=== PATIENT | female | born 1950 | race Caucasian/White ===

== ENCOUNTER 2024-02-21 07:10 | Day surgery (SDC) | payer MEDICARE, OTHER ==
[~2024-02-21] VITALS: Ht 175.3 cm; Wt 88.6 kg
[~2024-02-21 07:10] MED LIST: DYANAVEL PO; IBLOOD GLUCOSE TEST STRIP 1 EA TEST VI PRN; K2 PLUS D3 TAB1 EACH PO; LACTATED RINGER'S 1,000 ML IV SCH; LEVOTHYROXINE50 MC1 PO; LIDOCAINE HCL 1% 5 ML SDV INJ ONE; MIDAZOLAM HCL 5 MG/5 ML VIAL IV PRN; NORVASC2.5 MG PO; OXYBUTYNIN CHLOR5 M1 PO; [UNRECOGNIZED DRUG - OTHER] PO; fentaNYL citrate 100 MCG/2 ML VIAL IV PRN
[2024-02-21 07:32] VITALS: BP 137/69
[2024-02-21] MEDS ORDERED: TURMERIC500 M2 PO (07:35)
[2024-02-21] MEDS ORDERED: fentaNYL citrate 100 MCG/2 ML VIAL ONE (08:22)
[2024-02-21] MEDS ORDERED: MIDAZOLAM HCL 5 MG/5 ML VIAL ONE (08:22)
--- NOTE | 2024-02-21 09:32 | NUR ---
02/21/24 0932 Derek Noel 0922 PATIENT ARRIVED LYING IN LEFT LATERAL POSTION WITH EYE OPEN AND RESPONDING TO QUESTIONS. PATIENT DENITED PAIN AND NAUSEA. PATIENT WAS OFFERED TO CHANGE POSTIONS BUT DECLIND. PATIENT WAS ON 3L NASAL CANNULA. 09 PATIENT IS STILL RESTING COMFORTABLE WITH EYES OPEN AND RESPONDING TO QUESTIONS APPROPRIATELY. PATIENT DENIES ANY PAIN NAUSEA AT THIS TIME. 02 HAS BEEN DISCONTINUED.
[2024-02-21 10:11] VITALS: BP 102/77
--- NOTE | 2024-02-21 11:38 | OR ---
[facility] [address] [place], [place] [address] Signed DATE OF OPERATION: 02/21/2024 SURGEON: Nba Singleton MD PREOPERATIVE DIAGNOSIS: Positive Cologuard test. POSTOPERATIVE DIAGNOSIS: Small flat polyp, left colon (excised). PROCEDURES: Total colonoscopy to cecum with cold morcellation, polypectomy x1. ANESTHESIA: Intravenous sedation, fentanyl 150 mcg and Versed 5 mg. INDICATIONS: This 73-year-old white woman is a patient of Neli Bolaños of [place], [place]. She underwent colonoscopy by md in 2005, which was negative. She has no family history of colon cancer and no symptoms of bleeding, diarrhea, or constipation. She underwent a Cologuard screening test on August 09, 2023, which was positive. She is admitted at this time to undergo colonoscopy on the basis of positive Cologuard test. She understands the risk of colonoscopy including but not limited to bleeding, infection, and perforation and wished to proceed. FINDINGS: The prep was excellent. Complete colonoscopy was undertaken. The cecum with full intubation of the cecum. There was no evidence of colitis or other problem, but there was a small flat polyp of left colon, which was excised with cold morcellation technique. There were no other findings of concern. DESCRIPTION OF PROCEDURE: The patient was brought to the endoscopy suite and placed in the lateral decubitus position given intravenous sedation to a point of slurred speech and nystagmus with full cardiopulmonary monitoring. Digital rectal examination was performed showing no sign of abnormality. An Olympus video colonoscope was passed into the rectum and manipulated throughout the colon ultimately intubating the cecum itself. Full intubation of the cecum was accomplished. The ileocecal valve and appendiceal orifice were normal. The scope was Electronically Signed By: NBA SINGLETON MD 02/21/24 1138 PATIENT NAME: VERA VALDIVIA OPERATIVE REPORT DATE OF : 50 REPORT #: [id number] PHYSICIAN: NBA SINGLETON MD PCP: NELI BOLAÑOS NP REPORT IS CONFIDENTIAL AND NOT TO BE RELEASED WITHOUT AUTHORIZATION [facility] [address] [place] [id number] Signed withdrawn and careful inspection showed no sign of abnormality until the left colon, where a small flat polyp was noted, this was excised completely with cold morcellation technique. Further withdrawal showed no other abnormality, specifically none in the sigmoid or retroflexed view of the rectum. The scope was removed. The patient was taken to the recovery room in good condition. CONCLUDING DIAGNOSIS: Polyp of left colon excised. PLAN: Recommend repeat colonoscopy in 10 years or sooner if symptoms should develop based on current guidelines. She will return to the ongoing care of Neli Bolaños in [place], [place]. MD ANGELA Morejon/KAILEY /[id number] cc: Neli Bolaños NP Copies: NELI BOLAÑOS NP ~ Electronically Signed By: NBA SINGLETON MD 02/21/24 1138 PATIENT NAME: VERA VALDIVIA OPERATIVE REPORT DATE OF : 50 REPORT #: [id number] PHYSICIAN: NBA SINGLETON MD PCP: NELI BOLAÑOS NP REPORT IS CONFIDENTIAL AND NOT TO BE RELEASED WITHOUT AUTHORIZATION
--- NOTE | 2024-02-25 10:07 | PATH ---
[facility] [address] [place], [place] [address] Signed SPECIMEN(S): A DESCENDING POLYP SPECIMEN SOURCE: A. DESCENDING POLYP v CLINICAL HISTORY: Pre-: Positive Cologuard test 08/04. Post colon polyp x 1. FINAL PATHOLOGIC DIAGNOSIS: Colon, descending, polypectomy: - Hyperplastic polyp BRP MICROSCOPIC EXAMINATION: Histologic sections of all submitted blocks are examined by light microscopy. These findings, together with the gross examination, support the pathologic diagnosis. GROSS DESCRIPTION: The specimen, labeled and designated "Rodrigo, Breezy, descending polyp," is received in formalin and consists of six silvestre soft tissue fragments, ranging from 0.2-0.3 cm. Entirely submitted in (A1). AB (under the direct supervision of a pathologist) The Gross Description was prepared using a voice recognition system. The report was reviewed for accuracy; however, sound-alike word errors, addition and/or deletions may occur. If there is any question about this report, please contact Client Services. ADDITIONAL NOTES: Immunohistochemical and/or in situ hybridization studies if performed in this case included appropriate positive controls that reacted as expected. This test was developed and its performance characteristics determined by [facility]. It has not been cleared or approved by the U.S. Food and Drug Administration. The FDA has determined that such clearance or approval is not necessary. This test is used for clinical purposes. It should not be regarded as investigational or for research. [facility] is certified under the Clinical Laboratory Improvement Amendments of 1988 (CLIA) as qualified to perform high complexity clinical laboratory testing. PATIENT NAME: VERA VALDIVIA PATHOLOGY DATE OF : 50 REPORT #: [id number] PHYSICIAN: MAURI AHMADI PCP: FERNANDO BOLAÑOS NP REPORT IS CONFIDENTIAL AND NOT TO BE RELEASED WITHOUT AUTHORIZATION [address] [place], [place] [address] Signed PERFORMING LABORATORY: Technical component was performed by [facility], [address] [place] [address] (CLIA# [id number]). Professional interpretation was performed by [facility] - [address] [id number] Diagnostician: Steven Burgess MD Pathologist Electronically Signed 02/25/2024 Copies: ~ PATIENT NAME: VERA VALDIVIA PATHOLOGY DATE OF : 50 REPORT #: [id number] PHYSICIAN: MAURI AHMADI PCP: FERNANDO BOLAÑOS NP REPORT IS CONFIDENTIAL AND NOT TO BE RELEASED WITHOUT AUTHORIZATION
== END 2024-02-21 10:19 | disposition home or self-care (01) ==
LOC: DS 07:10
PROVIDERS: ATTEND Surgery
PROC: 0DBG8ZZ Excision of Left Large Intestine, Via Natural or Artificial Opening Endoscopic (ICD-10-PCS; principal; 2024-02-21 08:15)
DX: Z12.11 Encounter for screening for malignant neoplasm of colon (principal); K63.5 Polyp of colon; E03.9 Hypothyroidism, unspecified; Z88.0 Allergy status to penicillin; Z88.2 Allergy status to sulfonamides; Z88.5 Allergy status to narcotic agent; Z79.899 Other long term (current) drug therapy
CPT/HCPCS: 99153; G0500; J2250; J3010; J7121